=== PATIENT | male | born 1975 | race American Indian/Alaskan Native ===

== ENCOUNTER 2023-08-12 15:58 | Emergency (ER) | payer OTHER, MEDICARE ==
[~2023-08-12] VITALS: Ht 182.9 cm; Wt 108.2 kg
[2023-08-12 16:03] VITALS: BP 129/78; TEMP 97.9
[2023-08-12] MEDS ORDERED: Ketorolac 30 MG/ML VIAL IV ONE (19:15)
[2023-08-12] MEDS ORDERED: Sulfamethoxazole/Trimethoprim 800-160 MG TAB PO ONE (19:15)
[2023-08-12] MEDS ORDERED: Rabies Immune Globulin PF 300 UNITS/2 ML VIAL IM ONE (19:15)
[2023-08-12] MEDS ORDERED: CLEOCIN HCL300 MG PO (19:58)
[2023-08-12] MEDS ORDERED: BACTRIM DS 8001 TAB PO (19:58)
[2023-08-12] MEDS ORDERED: NORCO 325 MG-51 TAB PO (19:58)
[2023-08-12] MEDS ORDERED: HYDROcodone/Acetaminophen 7.5-325 MG TAB PO ONE (20:00)
[2023-08-12 20:28] VITALS: PULSE 78
== END 2023-08-12 20:31 | disposition home or self-care (01) ==
LOC: COL.ER 15:58
DX: S61.252A Open bite of right middle finger without damage to nail, initial encounter (principal); L03.011 Cellulitis of right finger; Z23 Encounter for immunization; Z88.0 Allergy status to penicillin; W55.01XA Bitten by cat, initial encounter
CPT/HCPCS: J0737; J1885